=== PATIENT | female | born 1960 | race Hispanic/Latino ===

== ENCOUNTER 2018-11-01 13:51 | Emergency (ER) | payer SELFPAY ==
[2018-11-01] MEDS ORDERED: Acetaminophen 500 MG TAB ONE (14:53)
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
== END 2018-11-01 15:13 | disposition home or self-care (01) ==
LOC: SCSER 13:51
DX: M54.5 Low back pain (principal); M25.552 Pain in left hip; M25.512 Pain in left shoulder; M19.90 Unspecified osteoarthritis, unspecified site; E11.9 Type 2 diabetes mellitus without complications; V89.2XXA Person injured in unspecified motor-vehicle accident, traffic, initial encounter; W22.11XA Striking against or struck by driver side automobile airbag, initial encounter
CPT/HCPCS: 72100; 72170; 93005